=== PATIENT | male | born 1995 | race Caucasian/White ===

== ENCOUNTER 2017-06-16 07:55 | Emergency (ER) | payer OTHER ==
[2017-06-16 09:15] LABS: APPEARANCE,URINE CLEAR; BILIRUBIN,URINE NEGATIVE (NEGATIVE); GLUCOSE, URINE NEGATIVE (NEGATIVE); KETONES,URINE NEGATIVE (NEGATIVE); LEUKOCYTE ESTERASE,URINE NEGATIVE (NEGATIVE); NITRITE,URINE NEGATIVE (NEGATIVE); PROTEIN,URINE NEGATIVE (NEGATIVE); URINE SPECIFIC GRAVITY 1.021; UROBILINOGEN,URINE NEGATIVE mg/dL (<2.0)
[2017-06-16 09:16] LABS: RBC,URINE 0-1 /HPF; WBC,URINE 0-1 /HPF
[2017-06-16 09:17] LABS: BACTERIA,URINE 2+ /HPF
--- NOTE | 2017-06-16 09:24 | ER Document Report ---
ED GI/ - General Chief Complaint: STD Exposure Stated Complaint: STI CHECK Time Seen by Provider: 06/16/17 08:21 Mode of Arrival: Ambulatory Information source: Patient Notes: Patient is a 22-year-old male who presents to the ER today for possible exposure to trichomonas. Patient states that he had an unprotected sexual encounter a few weeks ago with a female who called him yesterday and stated that she had been tested for STDs and tested positive for trichomonas, is currently on antibiotics. Patient denies any dysuria, penile discharge, rash, fevers or chills. He denies any abdominal pain. TRAVEL OUTSIDE OF THE [place] IN LAST 30 DAYS: No Past Medical History - General Information source: Patient - Social History Smoking Status: Never Smoker Chew tobacco use (# tins/day): No Frequency of alcohol use: None Drug Abuse: None Family History: Reviewed & Not Pertinent Renal/ Medical History: Denies: Hx Peritoneal Dialysis Review of Systems - Review of Systems Constitutional: No symptoms reported EENT: No symptoms reported Cardiovascular: No symptoms reported Respiratory: No symptoms reported Gastrointestinal: No symptoms reported Genitourinary: No symptoms reported Male Genitourinary: See HPI Musculoskeletal: No symptoms reported Skin: No symptoms reported Hematologic/Lymphatic: No symptoms reported Neurological/Psychological: No symptoms reported Physical Exam - Vital signs Vitals: Temp Pulse BP Pulse Ox 98.2 F 62 118/74 96 06/16/17 08:02 06/16/17 08:02 06/16/17 08:02 06/16/17 08:02 - Notes Notes: PHYSICAL EXAMINATION: GENERAL: Well-appearing and in no acute distress. HEAD: Atraumatic, normocephalic. EYES: Pupils equal round and reactive to light, extraocular movements intact, sclera anicteric, conjunctiva are normal. NECK: Normal range of motion, supple without lymphadenopathy LUNGS: CTAB and equal. No wheezes rales or rhonchi. HEART: Regular rate and rhythm without murmurs ABDOMEN: Soft, no tenderness. No guarding, no rebound BACK: no vertebral tenderness, normal ROM GI/: no CVA tenderness EXTREMITIES: Normal range of motion, no pitting edema. No cyanosis. NEUROLOGICAL: Cranial nerves grossly intact. Normal sensory/motor exams. PSYCH: Normal mood, normal affect. SKIN: Warm, Dry, normal turgor, no rashes or lesions noted Course - Re-evaluation Re-evalutation: 06/16/17 18:38 Looked at microscopically for trichomonas and none was observed, gonorrhea and chlamydia were also negative, urinalysis is normal. - Vital Signs Vital signs: Temp Pulse Resp BP Pulse Ox 98.3 F 68 20 127/95 H 100 06/16/17 09:44 06/16/17 09:44 06/16/17 09:44 06/16/17 09:44 06/16/17 09:44 Discharge - Discharge Clinical Impression: STD exposure Condition: Stable Disposition: HOME, SELF-CARE Additional Instructions: Return immediately for any new or worsening symptoms. Follow up with primary care provider, call tomorrow to make followup appointment.
[2017-06-16 09:45] VITALS: BP 127/95
[2017-06-16 11:55] LABS: CHLAM PCR NOT DETECTED (NOT DETECT)
== END 2017-06-16 09:44 | disposition home or self-care (01) ==
LOC: ER 07:55
DX: Z20.2 Contact with and (suspected) exposure to infections with a predominantly sexual mode of transmission (principal)
CPT/HCPCS: 81001; 87491; 87591; 99283